=== PATIENT | male | born 1975 | race Caucasian/White ===

== ENCOUNTER → 2022-09-01 10:04 | Outpatient (CLI) | payer OTHER, SELFPAY ==
--- NOTE | ~2022-09-01 | US_ITS ---
US soft tissue head and neck 09/01/2022 11:12 Indication: Localized swelling of the left lateral neck Procedure: High-resolution Limited ultrasound of the left neck in the area of palpable concern Comparison: No prior studies for comparison. Findings: In the area of palpable concern there is an oval shaped hypoechoic mass with slightly irreg ular margins, internal vascularity. The mass measures 2 x 1.9 x 0.7 cm with what appears to be an ech ogenic hilum. There is a hypoechoic linear structure extending from the mass to the skin surface poss ibly a sinus tract. Impression: 1: Oval hypoechoic mass left lateral neck in the area of palpable concern measuring up to 2 cm. The m ass has a somewhat atypical appearance for a normal lymph node. Recommend correlation with contrast-e nhanced CT neck for further assessment. Reviewed, dictated and finalized at location A. [employer] [employer] Impression: 1: Oval hypoechoic mass left lateral neck in the area of palpable concern measu ring up to 2 cm. The mass has a somewhat atypical appearance for a normal lymph node. Recommend correlation with contrast-enhanced CT neck for further assessm ent.
== END ==
PROVIDERS: PCP Family Medicine; Visit Provider Family Medicine
DX: R22.1 Localized swelling, mass and lump, neck (principal)
CPT/HCPCS: 76536

== ENCOUNTER 2024-01-07 12:11 | Outpatient (CLI) | payer OTHER, SELFPAY ==
--- NOTE | ~2024-01-07 | US_ITS ---
EXAMINATION: US soft tissue head and neck DATE: 01/07/2024 12:24 INDICATION: Posterior head and neck mass. TECHNIQUE: Multiple grayscale and Doppler ultrasound images of the head and neck were obtained. COMPARISON: None FINDINGS: In the patient's area of concern at the base of the skull, there is a 2.6 x 2.6 x 0.5 cm rich bcutaneous mass with echogenicity and echotexture similar to normal subcutaneous fat. IMPRESSION: 1. 2.6 cm subcutaneous mass at the posterior base of the skull, likely a lipoma. Reviewed, dictated and finalized at location A. IMPRESSION: 1. 2.6 cm subcutaneous mass at the posterior base of the skull, likely a lipoma .
== END 2024-01-07 12:12 ==
LOC: MICIMG 12:12
PROVIDERS: PCP Physician Assistant; Visit Provider Physician Assistant
DX: R22.0 Localized swelling, mass and lump, head (principal)
CPT/HCPCS: 76536

== ENCOUNTER → 2024-02-15 11:04 | Outpatient (REF) | payer OTHER, SELFPAY | LOC: ANHLAB 11:04 | PROVIDERS: PCP Physician Assistant; Visit Provider Plastic Surgery | DX: D17.0 Benign lipomatous neoplasm of skin and subcutaneous tissue of head, face and neck (principal) | CPT/HCPCS: 88304 ==

== ENCOUNTER 2025-09-12 08:02 | Outpatient (CLI) | payer OTHER, SELFPAY ==
[2025-09-12 08:24] LABS: Hematocrit 44.5 % (42.0-52.0); Hemoglobin 14.9 g/dL (14.0-18.0); Immature Granulocyte Percent A 0.3 % (0-0.5); Lymphocytes Absolute Auto 1.30 K/mm3 (0.9-3.2); Mean Corpuscular HGB Conc 33.5 g/dl (32-36); Mean Corpuscular Hemoglobin 30.3 pg (26-34); Mean Corpuscular Volume 90.4 fl (80-100); Nucleated Red Blood Cells Absolute Auto 0.000 K/mm3 (0.0-0.012); Nucleated Red Blood Cells Perc 0.0 % (0.0-0.2); Platelet Count Result 206 k/mm3 (150-375); Red Blood Count 4.92 M/mm3 (4.6-6.20); White Blood Count 5.9 K/mm3 (4.5-10.0)
[2025-09-12 08:53] LABS: Alanine Aminotransferase 35 U/L (6-50); Albumin Level 4.2 g/dL (3.5-5.1); Alkaline Phosphatase 116 U/L (38-126); Anion Gap 7 mmol/L (4-12); Aspartate Amino Transferase 53 U/L (17-59); Bilirubin,Total 0.6 mg/dL (0.2-1.3); Blood Urea Nitrogen 12 mg/dL (9-20); Calcium 8.8 mg/dL (8.4-10.2); Carbon Dioxide 27 mmol/L (22-30); Chloride 106 mmol/L (98-107); Cholesterol 128 mg/dL (0-200); Estimated Glomerular Filt Rate > 60; Glucose 107 mg/dL (65-110); HDL Direct 34 mg/dL; Potassium 4.4 mmol/L (3.4-5.0); Sodium 140 mmol/L (137-145); Total Protein 7.5 g/dL (6.3-8.2); Triglycerides 158 mg/dL (<150)
== END 2025-09-12 08:03 | disposition home or self-care (01) ==
LOC: ANHLAB 08:05
PROVIDERS: PCP Family Medicine; Visit Provider Physician Assistant
DX: E78.2 Mixed hyperlipidemia (principal); I10 Essential (primary) hypertension
CPT/HCPCS: 36415; 80053; 80061; 85025